=== PATIENT | male | born 1935 | race Caucasian/White ===

== ENCOUNTER 2017-11-07 08:50 | Day surgery (SDC) | payer MEDICARE ==
[2017-11-07 09:58] LABS: ADD MAN DIFF? NO
[2017-11-07 10:03] LABS: WHITE BLOOD COUNT 3.7 10^3/ul (4.8-10.8)
[2017-11-07 10:03] LABS: ABNORMAL IP MESSAGE 1; BASOPHILS % 0.8 % (0.0-2.0); EOSINOPHILS # 0.1 10^3/ul (0.0-0.5); EOSINOPHILS % 1.9 % (0.0-7.0); HEMATOCRIT 37.3 % (42.0-52.0); HEMOGLOBIN 12.8 g/dl (14.0-18.0); LYMPHOCYTES # 1.4 10^3/ul (0.8-2.9); LYMPHOCYTES % 38.9 % (15.0-51.0); MEAN CORPUSCULAR HEMOGLOBIN 33.4 pg (29.0-33.0); MEAN CORPUSCULAR HGB CONC 34.3 g/dl (32.0-37.0); MEAN CORPUSCULAR VOLUME 97.4 fl (82.0-101.0); MEAN PLATELET VOLUME 11.6 fl (7.4-10.4); MONOCYTE # 0.5 10^3/ul (0.3-0.9); MONOCYTES % 12.2 % (0.0-11.0); NEUTROPHIL # 1.7 10^3/ul (1.6-7.5); NEUTROPHILS % 46.2 % (39.0-77.0); PLATELET COUNT 95 10^3/UL (140-415); RED BLOOD COUNT 3.83 10^6/ul (4.70-6.10); RED CELL DISTRIBUTION WIDTH 11.8 % (11.5-14.5)
[2017-11-07 10:11] LABS: HOLD TRANSMISSIONS 1
[2017-11-07 10:19] LABS: INR 1.18; PROTIME 15.2 Sec (11.9-14.9); PT RATIO 1.2
[2017-11-07 10:32] LABS: PARTIAL THROMBOPLASTIN TIME 41.5 Sec (25.0-35.0)
[2017-11-07 10:57] LABS: BAND NEUTROPHILS #M 0.2 10^3/ul (0.0-0.6); BAND NEUTROPHILS % (M) 6 % (0-4); BASOPHILS % (M) 1 % (0-2); EOSINOPHILS % (M) 3 % (0-7); GIANT THROMBO% (M) 1 % (0-0); LYMPHOCYTES #M 0.9 10^3/ul (0.8-2.9); LYMPHOCYTES % (M) 25 % (15-51); METAMYELOCYTES %M 2 % (0-0); MONOCYTE #M 0.2 10^3/ul (0.3-0.9); MONOCYTES % (M) 8 % (0-11); PLATELET ESTIMATE DECREASED; POIKILOCYTOSIS 2+ (0-0); REACTIVE LYMPHOCYTES #M 0.7 10^3/ul (0.0-0.0); REACTIVE LYMPHOCYTES% (M) 21 % (0-0); SEG NEUT #M 1.3 10^3/ul (1.6-7.5); SEGMENTED NEUTROPHILS (M) % 34 % (39-77); SMUDGE%M 2 % (0-0)
[2017-11-07] MEDS: FAMOTIDINE 20 MG TAB PO (11:00)
[2017-11-07] MEDS: SOD CHLORIDE 0.45% 1,000 ML IV (11:00)
[2017-11-07] MEDS: DIPHENHYDRAMINE 50 MG CAP PO (11:00)
[2017-11-07] MEDS: DIAZEPAM 5 MG TAB PO (11:00)
[2017-11-07 11:34] LABS: ANION GAP 13 (8-16); CARBON DIOXIDE 23 mmol/L (21-31); CHLORIDE 109 mmol/L (97-110); CHOL/HDL RATIO 2.6 RATIO; CHOLESTEROL 103 mg/dl (100-200); GLUCOSE 114 mg/dl (70-220); HDL CHOLESTEROL 39 mg/dl (31-75); LDL CHOLESTEROL,CALCULATED 49 mg/dl; TRIGLYCERIDES 77 mg/dl (0-149)
[2017-11-07 11:37] LABS: CALCIUM 9.2 mg/dl (8.4-10.2); SODIUM 139 mmol/L (135-144)
[2017-11-07 11:43] LABS: BLOOD UREA NITROGEN 24 mg/dl (7-20); CREATININE 1.56 mg/dl (0.61-1.24); POTASSIUM 5.5 mmol/L (3.5-5.1)
[2017-11-07] MEDS ORDERED: ONDANSETRON 4 MG INJ IV (14:30)
[2017-11-07] MEDS ORDERED: ACETAMINOPHEN 325 MG TAB PO (14:30)
[2017-11-07] MEDS ORDERED: AL HYDROX/MG HYDROX/SIMETH 30 ML CUP PO (14:30)
[2017-11-07] MEDS ORDERED: morphine 2 MG INJ IV (14:30)
[2017-11-07] MEDS: SOD CHLORIDE 0.9% 1,000 ML IV (14:44)
[2017-11-07] MEDS ORDERED: hydrALAzine 20 MG INJ IV (15:00)
[2017-11-07] MEDS: NIFEdipine (XL) 30 MG TAB PO (15:33)
[2017-11-07] MEDS ORDERED: MIDAZOLAM 1 MG/ML 2 ML INJ (16:29)
[2017-11-07] MEDS ORDERED: IOHEXOL 350MG/ML 50 ML BTL (16:29)
[2017-11-07] MEDS ORDERED: ASPIRIN 325 MG TAB (16:29)
[2017-11-07] MEDS ORDERED: TICAGRELOR 90 MG TABLET (16:29)
[2017-11-07] MEDS ORDERED: LIDOCAINE 1% (MDV) 20 ML INJ (16:29)
[2017-11-07] MEDS ORDERED: FENTAnyl 50 MCG/ML VIAL (16:29)
[2017-11-07] MEDS ORDERED: BIVALIRUDIN 250MG /NS 50 ML 50 ML IVPB (16:29)
[2017-11-07] MEDS ORDERED: NITROGLYCERIN (IC) 100 MCG/ML INJ (16:29)
[2017-11-07] MEDS ORDERED: IODIXANOL LOCM 100 ML BTL (16:29)
[2017-11-07 16:50] LABS: ANION GAP 19 (8-16); BLOOD UREA NITROGEN 22 mg/dl (7-20); CALCIUM 8.7 mg/dl (8.4-10.2); CARBON DIOXIDE 21 mmol/L (21-31); CHLORIDE 106 mmol/L (97-110); CREATININE 1.39 mg/dl (0.61-1.24); GLUCOSE 97 mg/dl (70-220); SODIUM 141 mmol/L (135-144)
[2017-11-07] MEDS: PREGABALIN 25 MG CAP PO (20:10)
[2017-11-07] MEDS: TICAGRELOR 90 MG TABLET PO (20:21)
[2017-11-07] MEDS ORDERED: GLUCOSE GEL 15 GRAM TUBE BUCCAL (20:30)
[2017-11-07] MEDS ORDERED: DEXTROSE 50% 50 ML SYRINGE IV ×2 (20:30)
[2017-11-07] MEDS ORDERED: GLUCAGON 1 MG INJ IM (20:30)
[2017-11-07] MEDS ORDERED: GLUCOSE GEL 15 GRAM TUBE PO ×2 (20:30)
[2017-11-07] MEDS: OXYCODONE/ACETAMINOPHEN (5/325) TAB PO (22:42)
[2017-11-07] MEDS: INSULIN ASPART [NOVOLOG] 3 ML PEN SC (22:48)
[2017-11-08] MEDS: SOD CHLORIDE 0.9% 1,000 ML IV (02:01)
[2017-11-08] MEDS: ACCU-CHEK XX (02:16)
[2017-11-08 06:52] LABS: ADD MAN DIFF? NO
[2017-11-08 07:14] LABS: WHITE BLOOD COUNT 4.7 10^3/ul (4.8-10.8)
[2017-11-08 07:14] LABS: ABNORMAL IP MESSAGE 1; BASOPHILS % 0.4 % (0.0-2.0); EOSINOPHILS # 0.1 10^3/ul (0.0-0.5); EOSINOPHILS % 1.1 % (0.0-7.0); HEMOGLOBIN 10.7 g/dl (14.0-18.0); LYMPHOCYTES # 1.4 10^3/ul (0.8-2.9); LYMPHOCYTES % 28.9 % (15.0-51.0); MEAN CORPUSCULAR HEMOGLOBIN 33.3 pg (29.0-33.0); MEAN CORPUSCULAR HGB CONC 34.5 g/dl (32.0-37.0); MEAN CORPUSCULAR VOLUME 96.6 fl (82.0-101.0); MEAN PLATELET VOLUME 10.5 fl (7.4-10.4); MONOCYTE # 0.6 10^3/ul (0.3-0.9); MONOCYTES % 11.8 % (0.0-11.0); NEUTROPHIL # 2.7 10^3/ul (1.6-7.5); NEUTROPHILS % 57.6 % (39.0-77.0); PLATELET COUNT 80 10^3/UL (140-415); POSITIVE DIFF @See below; RED BLOOD COUNT 3.21 10^6/ul (4.70-6.10); RED CELL DISTRIBUTION WIDTH 11.9 % (11.5-14.5)
[2017-11-08 07:38] LABS: URIC ACID 6.5 mg/dl (3.1-7.9)
[2017-11-08 07:41] LABS: ADD UMIC NO; UR ASCORBIC ACID NEGATIVE (NEGATIVE); UR BILIRUBIN (Dip) NEGATIVE (NEGATIVE); UR BLOOD (Dip) NEGATIVE (NEGATIVE); UR CLARITY CLEAR (CLEAR); UR COLOR YELLOW (YELLOW); UR GLUCOSE (Dip) 1+ mg/dL (NEGATIVE); UR KETONES (Dip) NEGATIVE (NEGATIVE); UR LEUKOCYTE ESTERASE (Dip) NEGATIVE Leu/ul (NEGATIVE); UR NITRITE (Dip) NEGATIVE (NEGATIVE); UR SPECIFIC GRAVITY (Dip) 1.035 (1.003-1.030); UR TOTAL PROTEIN (Dip) NEGATIVE (NEGATIVE); UR UROBILINOGEN (Dip) 1+ mg/dL (NEGATIVE)
[2017-11-08 07:46] LABS: ALANINE AMINOTRANSFERASE 31 IU/L (13-69); ALBUMIN 3.3 g/dl (3.3-4.9); ALBUMIN/GLOBULIN RATIO 1.17; ALKALINE PHOSPHATASE 38 IU/L (42-121); ANION GAP 17 (8-16); ASPARTATE AMINO TRANSFERASE 21 IU/L (15-46); BILIRUBIN,INDIRECT 0.6 mg/dl (0-1.1); BILIRUBIN,TOTAL 0.6 mg/dl (0.2-1.3); BLOOD UREA NITROGEN 21 mg/dl (7-20); CALCIUM 8.2 mg/dl (8.4-10.2); CARBON DIOXIDE 20 mmol/L (21-31); CHLORIDE 110 mmol/L (97-110); CREATININE 1.44 mg/dl (0.61-1.24); GLUCOSE 93 mg/dl (70-220); POTASSIUM 4.6 mmol/L (3.5-5.1); SODIUM 142 mmol/L (135-144); TOTAL PROTEIN 6.1 g/dl (6.1-8.1)
[2017-11-08] MEDS: INSULIN ASPART [NOVOLOG] 3 ML PEN SC ×2 (07:55→11:50)
[2017-11-08 07:58] LABS: SODIUM,URINE RANDOM 164 mmol/L (30-90)
[2017-11-08 07:58] LABS: CREATININE,URINE RANDOM 73.97 mg/dl (20-370)
[2017-11-08] MEDS: CLOPIDOGREL 75 MG TAB PO (08:22)
[2017-11-08] MEDS: ASPIRIN (EC) 81 MG TAB PO (08:23)
[2017-11-08] MEDS: LINAGLIPTIN 5 MG TABLET PO (08:25)
[2017-11-08] MEDS: NIFEdipine (XL) 30 MG TAB PO (08:26)
[2017-11-08 10:05] LABS: HEMOGLOBIN A1C 6.1 % (0-5.9)
[2017-11-08] MEDS ORDERED: ATORVASTATIN 20 MG TAB PO (21:00)
[2017-11-09] MEDS ORDERED: CLOPIDOGREL 75 MG TAB PO (09:00)
[2017-11-10 15:06] LABS: CREATININE, RANDOM URINE 88 mg/dL (20-370); MICROALBUMIN/CREATININE RATIO 11 (<30)
== END 2017-11-08 17:45 | disposition home or self-care (01) ==
LOC: SDS 08:50 → ICU 14:14 → SDS 11-08 17:45 → TEL 22:00
DX: I25.10 Atherosclerotic heart disease of native coronary artery without angina pectoris (principal); I35.0 Nonrheumatic aortic (valve) stenosis; I10 Essential (primary) hypertension; E78.5 Hyperlipidemia, unspecified; E10.40 Type 1 diabetes mellitus with diabetic neuropathy, unspecified; I48.2 Chronic atrial fibrillation; N17.9 Acute kidney failure, unspecified; E87.5 Hyperkalemia; D61.818 Other pancytopenia; M89.8X9 Other specified disorders of bone, unspecified site
CPT/HCPCS: 71045; 80048; 80053; 80061; 81003; 82043; 82962; 83036; 84155; 84300; 84560; 85025; 85610; 85730; 87081; 93005; 93460